=== PATIENT | female | born 1990 | race American Indian/Alaskan Native ===

== ENCOUNTER 2019-02-04 08:32 | Inpatient (IN) | payer MEDICAID ==
--- NOTE | 2019-02-04 08:46 | History and Physical Report ---
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 of genital herpes: yes Partner hx. of genital herpes: no Rash, Viral, or Febrile illness since last LMP? no Varicella/Chicken Pox Status: Previous Disease TB Risk: no Infection History Comments: HSV 2 Genetic History Congenital Heart Defect: Mom: no Dad: no Martha Disease: Mom: no Dad: no Thalassemia Mom: no Dad: no Neural Tube Defect Mom: no Dad: no Down's Syndrome Mom: no Dad: no Sam-Sachs Mom: no Dad: no Sickle Cell Disease/Trait Mom: no Dad: no Hemophilia Mom: no Dad: no Muscular Dystrophy Mom: no Dad: no Cystic Fibrosis Mom: no Dad: no [place] Chorea Mom: no Dad: no Mental Retardation Mom: no Dad: no Fragile X Mom: no Dad: no Other Genetic/Chromosomal Disorder Mom: no Dad: no Child w/other defect Mom: no Dad: no Enviromental Exposures Xray Exposure: no Medication, drug, or alcohol use since LMP: no Chemical/Other Exposure: no Exposure to Cat Liter: no Hx of Parvovirus (Fifth Disease): no Occupational Exposure to Children: none Active Medications (reviewed today): VALTREX 500 MG () 1 PO Daily. Current Allergies (reviewed today): No known allergies Past History - Obstetrical History Expected Date of Delivery: 02/06/19 Actual Gestation: 39 Week(s) 5 Day(s) : 2 Para: 1 Hx # Term Pregnancies: 1 Number of Pregnancies: 0 Spontaneous Abortions: 0 Induced : 0 Number of Living Children: 1 Medications and Allergies Allergies Allergy/AdvReac Type Severity Reaction Status Date / Time No Known Allergies Allergy Verified 02/04/19 08:42 Home Medications Medication Instructions Recorded Confirmed Last Taken Type Pediatric Multivitamin No.76 1 each PO 02/04/19 Unknown History [Flintstones Complete] Valacyclovir HCl [Valtrex] 1,000 mg PO 02/04/19 Unknown History - Physical Exam Breasts: Positive: deferred Cardiovascular: Regular rate, Normal S1, Normal S2 Lungs: Positive: Normal air movement Abdomen: Positive: normal appearance, soft, normal bowel sounds. Negative: distention, tenderness Genitourinary (Female): Positive: normal external genitalia Vulva: both: normal Vagina: Positive: normal moisture. Negative: discharge Cervix: Negative: lesion, discharge Uterus: Positive: normal size, normal contour Adnexa: both: normal Anus/Rectum: Positive: normal perianal skin, heme negative. Negative: rectal mass, hemorrhoids Extremities: Positive: normal Deep Tendon Reflex Grade: Normal +2 - Obstetrical FHR: category 1 Uterine Contraction Monitor Mode: External Cervical Dilatation: 1 Cervical Effacement Percentage: 50 station: -3 Uterine Contraction Pattern: Irregular Uterine Tone Measurement Phase: Resting Uterine Contraction Intensity: Mild Results Result Diagrams: 02/04/19 10:30 All other labs normal. GBS Negative HBsAg Screen Negative Negative *1 RPR Non Reactive Non Reactive *2 Rubella Antibodies, IgG 4.55 index Immune >0.99 *3 Non-immune <0.90 Equivocal 0.90 - 0.99 Immune >0.99 ABO Grouping B *4 Rh Factor Positive *5 Please note: Prior records for this patient's ABO / Rh type are not available for additional verification. Antibody Screen Negative Negative *6 WBC 8.1 x10E3/uL 3.4-10.8 *7 RBC 4.15 x10E6/uL 3.77-5.28 *8 Hemoglobin 12.4 g/dL 11.1-15.9 *9 Hematocrit 37.3 % 34.0-46.6 *10 MCV 90 fL 79-97 *11 MCH 29.9 pg 26.6-33.0 *12 MCHC 33.2 g/dL 31.5-35.7 *13 RDW 14.6 % 12.3-15.4 *14 Platelets 217 x10E3/uL 150-379 *15 Neutrophils 73 % Not Estab. *16 Lymphs 17 % Not Estab. *17 Monocytes 8 % Not Estab. *18 Eos 1 % Not Estab. *19 Basos 0 % Not Estab. *20 ! Immature Cells <No Reported Value> *21 Neutrophils (Absolute) 6.0 x10E3/uL 1.4-7.0 *22 Lymphs (Absolute) 1.4 x10E3/uL 0.7-3.1 *23 Monocytes(Absolute) 0.7 x10E3/uL 0.1-0.9 *24 Eos (Absolute) 0.1 x10E3/uL 0.0-0.4 *25 Baso (Absolute) 0.0 x10E3/uL 0.0-0.2 *26 ! Immature Granulocytes 1 % Not Estab. *27 ! Immature Grans (Abs) 0.0 x10E3/uL 0.0-0.1 *28 ! NRBC <No Reported Value> *29 Hematology Comments: <No Reported Value> *30 Tests: (2) Panel 601231 ([id number]) HIV Screen 4th Generation wRfx Non Reactive Non Reactive *31 Tests: (3) HCV Ab w/Rflx to Verification (458307) ! HCV Ab <0.1 s/co ratio 0.0-0.9 *32 Tests: (4) Comment: (842204) ! Comment: SPR[facility] *33 Non reactive HCV antibody screen is consistent with no HCV infection, unless recent infection is suspected or other evidence exists to indicate HCV infection. Tests: (5) Urine Culture, Routine (615899) Urine Culture, Routine Final report *34 Tests: (6) Result ([id number]) ! Result 1 No growth *35 Assessment and Plan 28yo @ 39 weeks for IOL as per AMFM recommendation due to GDM and IUGR GBS negative Orders in EMR
[2019-02-04] MEDS ORDERED: BRETHINE SUB-Q PRN (08:49)
[2019-02-04] MEDS ORDERED: XYLOCAINE 2% INFILTRATI NR (08:49)
[2019-02-04] MEDS ORDERED: SUBLIMAZE IV PRN (08:49)
[2019-02-04] MEDS ORDERED: PITOCin/NS 20 UNIT/1000ML DRIP 20 UNITS/1,000 ML BAG IV SCH (09:00)
[2019-02-04] MEDS ORDERED: PITOCin/NS 30 UNIT/500ML 30 UNITS/500 ML BAG IV SCH (09:00)
[2019-02-04 11:04] LABS: Hematocrit 38.3 % (30.3-42.9); Hemoglobin 13.2 gm/dl (10.1-14.3); Mean Corpuscular HGB Conc 35 % (30-34); Mean Corpuscular Volume 90 fl (79-97); Platelet Count 162 K/mm3 (140-440); Red Blood Count 4.27 M/mm3 (3.65-5.03); Red Cell Distribution Width 15.5 % (13.2-15.2)
--- NOTE | 2019-02-04 19:02 | Event Note ---
Date: 02/04/19 (MGSO4 off; transfer to ) pt is w/o complaint anxious to transfer to m/b so she can be with her NB. VSS BP stable Orders in EMR Dr Uribe aware
[2019-02-04] MEDS ORDERED: AMBIEN PO PRN (19:05)
--- NOTE | 2019-02-04 19:05 | Event Note ---
Date: 02/04/19 (pitocin off) Pt to be OOB for PM care and diet Pitocin off Will place cervidil @ 1999.
[2019-02-04] MEDS ORDERED: CERVIDIL VG ONE (20:00)
[2019-02-04] MEDS: LACTATED RINGERS 1,000 ML IV SCH ×2 (21:10→23:35)
[2019-02-04] MEDS ORDERED: MINERAL OIL PO PRN (22:00)
[2019-02-05] MEDS ORDERED: REGLAN ONE (00:08)
[2019-02-05] MEDS ORDERED: BICITRA ONE (00:08)
[2019-02-05] MEDS ORDERED: ANCEF/STERILE WATER 2 GM/20 ML 2 GM/20 ML SYRINGE IV ONE (00:09)
[2019-02-05] MEDS ORDERED: PEPCID IV ONE ×2 (00:10→04:16)
--- NOTE | 2019-02-05 00:23 | Progress Note ---
Assessment and Plan Called by RN just after cervidil was placed and pt was having deep decelerations Cervidil was pulled. Pt had low dose pitocin started and within 30min started having deep decels again SVE unchged per RN. Once I arrived cervix examined 1- 2,50, OOP bedside US done to confirm vertex. Discussed findings with pt and her mom that being remote from delivery there may be a need for section. Pt has been bolused will get epidural. Dr Uribe made aware of situation. C/S consent signed. 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 of genital herpes: yes Partner hx. of genital herpes: no Rash, Viral, or Febrile illness since last LMP? no Varicella/Chicken Pox Status: Previous Disease TB Risk: no Infection History Comments: HSV 2 Genetic History Congenital Heart Defect: Mom: no Dad: no Martha Disease: Mom: no Dad: no Thalassemia Mom: no Dad: no Neural Tube Defect Mom: no Dad: no Down's Syndrome Mom: no Dad: no Sam-Sachs Mom: no Dad: no Sickle Cell Disease/Trait Mom: no Dad: no Hemophilia Mom: no Dad: no Muscular Dystrophy Mom: no Dad: no Cystic Fibrosis Mom: no Dad: no [place] Chorea Mom: no Dad: no Mental Retardation Mom: no Dad: no Fragile X Mom: no Dad: no Other Genetic/Chromosomal Disorder Mom: no Dad: no Child w/other defect Mom: no Dad: no Enviromental Exposures Xray Exposure: no Medication, drug, or alcohol use since LMP: no Chemical/Other Exposure: no Exposure to Cat Liter: no Hx of Parvovirus (Fifth Disease): no Occupational Exposure to Children: none Active Medications (reviewed today): VALTREX 500 MG () 1 PO Daily. Current Allergies (reviewed today): No known allergies Patient reports: movement normal Objective - Vital Signs Vital Signs: Vital Signs - 12hr 02/04/19 02/04/19 02/04/19 12:42 13:42 14:05 Temperature 98.3 F Pulse Rate 77 64 Blood Pressure 102/57 104/64 O2 Sat by Pulse Oximetry 02/04/19 02/04/19 02/04/19 14:42 15:42 16:43 Temperature Pulse Rate 70 63 72 Blood Pressure 100/63 100/63 108/69 O2 Sat by Pulse Oximetry 02/04/19 02/04/19 02/04/19 17:41 18:05 18:43 Temperature 98.2 F Pulse Rate 81 86 Blood Pressure 110/68 107/67 O2 Sat by Pulse Oximetry 02/04/19 02/04/19 02/04/19 19:42 20:15 20:42 Temperature Pulse Rate 77 78 71 Blood Pressure 105/62 118/69 108/61 O2 Sat by Pulse Oximetry 02/04/19 02/04/19 02/04/19 21:23 21:28 21:33 Temperature Pulse Rate 66 65 65 Blood Pressure O2 Sat by Pulse 100 100 100 Oximetry 02/04/19 02/04/19 02/04/19 21:38 21:42 21:43 Temperature Pulse Rate 64 61 62 Blood Pressure 106/61 O2 Sat by Pulse 100 100 Oximetry 02/04/19 02/04/19 02/04/19 21:48 21:53 21:58 Temperature Pulse Rate 60 70 61 Blood Pressure O2 Sat by Pulse 100 100 100 Oximetry 02/04/19 02/04/19 02/04/19 22:03 22:08 22:13 Temperature Pulse Rate 63 59 L 63 Blood Pressure O2 Sat by Pulse 100 99 100 Oximetry 02/04/19 02/04/19 02/04/19 22:18 22:23 22:28 Temperature Pulse Rate 63 67 63 Blood Pressure O2 Sat by Pulse 100 100 100 Oximetry 02/04/19 02/04/19 02/04/19 22:33 22:38 22:42 Temperature Pulse Rate 75 76 65 Blood Pressure 101/53 O2 Sat by Pulse 100 100 Oximetry 02/04/19 02/04/19 02/04/19 22:43 22:48 22:53 Temperature Pulse Rate 66 66 72 Blood Pressure O2 Sat by Pulse 100 100 100 Oximetry 02/04/19 02/04/19 02/04/19 22:58 23:03 23:10 Temperature Pulse Rate 73 72 73 Blood Pressure O2 Sat by Pulse 100 100 100 Oximetry 02/04/19 02/04/19 02/04/19 23:15 23:20 23:25 Temperature Pulse Rate 75 69 61 Blood Pressure O2 Sat by Pulse 99 99 100 Oximetry 02/04/19 02/04/19 02/04/19 23:30 23:35 23:40 Temperature Pulse Rate 77 71 72 Blood Pressure O2 Sat by Pulse 100 100 100 Oximetry 02/04/19 02/04/19 02/04/19 23:42 23:45 23:50 Temperature Pulse Rate 62 66 61 Blood Pressure 114/77 O2 Sat by Pulse 100 100 Oximetry 02/04/19 02/05/19 02/05/19 23:55 00:00 00:05 Temperature Pulse Rate 84 85 76 Blood Pressure O2 Sat by Pulse 100 100 100 Oximetry 02/05/19 00:10 Temperature Pulse Rate 86 Blood Pressure O2 Sat by Pulse 97 Oximetry - Exam Breasts: deferred Cardiovascular: Regular rate Lungs: Normal air movement Abdomen: Present: normal appearance, soft. Absent: distention, tenderness Uterus: Present: normal FHR: auscultation normal, category 2 Uterine Contraction Monitor Mode: External Cervical Dilatation: 1.5 Cervical Effacement Percentage: 50 station: -3 Uterine Contraction Pattern: Irregular Uterine Tone Measurement Phase: Resting Uterine Contraction Intensity: Mild Extremities: normal Deep Tendon Reflex Grade: Normal +2 - Labs Labs: Abnormal Labs 02/04/19 10:30 MCHC 35 H RDW 15.5 H Laboratory Results - last 24 hr 02/04/19 02/04/19 02/04/19 10:30 10:30 10:30 WBC 6.6 RBC 4.27 Hgb 13.2 Hct 38.3 MCV 90 MCH 31 MCHC 35 H RDW 15.5 H Plt Count 162 RPR Nonreactive Blood Type B POSITIVE Antibody Screen Negative
[2019-02-05] MEDS ORDERED: NARCAN 2 MG/2 ML IV PRN (01:04)
--- NOTE | 2019-02-05 01:04 | Anesthesia Day of Surgery ---
Anesthesia Day of Surgery - Day of Surgery Patient Examined: Yes Patient H&P Reviewed: Yes Patient is NPO: Yes
--- NOTE | 2019-02-05 01:04 | Anesthesia Consultation ---
Anesthesia Consult and Med Hx Date of service: 02/05/19 - Airway Anesthetic Teeth Evaluation: Good ROM Head & Neck: Adequate Mental/Hyoid Distance: Adequate Mallampati Class: Class I Intubation Access Assessment: Good - Pulmonary Exam CTA: Yes - Cardiac Exam Cardiac Exam: RRR - Pre-Operative Health Status ASA Pre-Surgery Classification: ASA2 Proposed Anesthetic Plan: Epidural - Pulmonary Hx Asthma: No - Cardiovascular System Hx Hypertension: No - Central Nervous System Hx Seizures: No Hx Psychiatric Problems: No - Endocrine Hx Renal Disease: No Hx Hypothyroidism: No Hx Hyperthyroidism: No - Hematic Hx Anemia: No Hx Sickle Cell Disease: No
--- NOTE | 2019-02-05 01:23 | Progress Note ---
Assessment and Plan will continue close observation Will start pitocin @ 0200 Re-eval prn Subjective - Subjective Date of service: 02/05/19 (comfortable with epidural) Principal diagnosis: IOL @ 39 weeks GDM & IUGR Interval history: Past History : 2 Term Births: 1 Living Children: 1 Para: 1 Aborta: 0 # 1 Delivery date: 05/03/2011 Weeks Gestation: 40 Delivery type: Vaginal Anesthesia type: epidural Delivery location: [facility] Infant Sex: male weight: 7.25 Name: trung Comments: none Past Medical History: Reviewed history from 10/04/2010 and no changes required: 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 of genital herpes: yes Partner hx. of genital herpes: no Rash, Viral, or Febrile illness since last LMP? no Varicella/Chicken Pox Status: Previous Disease TB Risk: no Infection History Comments: HSV 2 Genetic History Congenital Heart Defect: Mom: no Dad: no Martha Disease: Mom: no Dad: no Thalassemia Mom: no Dad: no Neural Tube Defect Mom: no Dad: no Down's Syndrome Mom: no Dad: no Sam-Sachs Mom: no Dad: no Sickle Cell Disease/Trait Mom: no Dad: no Hemophilia Mom: no Dad: no Muscular Dystrophy Mom: no Dad: no Cystic Fibrosis Mom: no Dad: no [place] Chorea Mom: no Dad: no Mental Retardation Mom: no Dad: no Fragile X Mom: no Dad: no Other Genetic/Chromosomal Disorder Mom: no Dad: no Child w/other defect Mom: no Dad: no Enviromental Exposures Xray Exposure: no Medication, drug, or alcohol use since LMP: no Chemical/Other Exposure: no Exposure to Cat Liter: no Hx of Parvovirus (Fifth Disease): no Occupational Exposure to Children: none Active Medications (reviewed today): VALTREX 500 MG () 1 PO Daily. Current Allergies (reviewed today): No known allergies Patient reports: movement normal Objective - Vital Signs Vital Signs: Vital Signs - 12hr 02/04/19 02/04/19 02/04/19 13:42 14:05 14:42 Temperature 98.3 F Pulse Rate 64 70 Blood Pressure 104/64 100/63 O2 Sat by Pulse Oximetry 02/04/19 02/04/19 02/04/19 15:42 16:43 17:41 Temperature Pulse Rate 63 72 81 Blood Pressure 100/63 108/69 110/68 O2 Sat by Pulse Oximetry 02/04/19 02/04/19 02/04/19 18:05 18:43 19:42 Temperature 98.2 F Pulse Rate 86 77 Blood Pressure 107/67 105/62 O2 Sat by Pulse Oximetry 02/04/19 02/04/19 02/04/19 20:15 20:42 21:23 Temperature Pulse Rate 78 71 66 Blood Pressure 118/69 108/61 O2 Sat by Pulse 100 Oximetry 02/04/19 02/04/19 02/04/19 21:28 21:33 21:38 Temperature Pulse Rate 65 65 64 Blood Pressure O2 Sat by Pulse 100 100 100 Oximetry 02/04/19 02/04/19 02/04/19 21:42 21:43 21:48 Temperature Pulse Rate 61 62 60 Blood Pressure 106/61 O2 Sat by Pulse 100 100 Oximetry 02/04/19 02/04/19 02/04/19 21:53 21:58 22:03 Temperature Pulse Rate 70 61 63 Blood Pressure O2 Sat by Pulse 100 100 100 Oximetry 02/04/19 02/04/19 02/04/19 22:08 22:13 22:18 Temperature Pulse Rate 59 L 63 63 Blood Pressure O2 Sat by Pulse 99 100 100 Oximetry 02/04/19 02/04/19 02/04/19 22:23 22:28 22:33 Temperature Pulse Rate 67 63 75 Blood Pressure O2 Sat by Pulse 100 100 100 Oximetry 02/04/19 02/04/19 02/04/19 22:38 22:42 22:43 Temperature Pulse Rate 76 65 66 Blood Pressure 101/53 O2 Sat by Pulse 100 100 Oximetry 02/04/19 02/04/19 02/04/19 22:48 22:53 22:58 Temperature Pulse Rate 66 72 73 Blood Pressure O2 Sat by Pulse 100 100 100 Oximetry 02/04/19 02/04/19 02/04/19 23:03 23:10 23:15 Temperature Pulse Rate 72 73 75 Blood Pressure O2 Sat by Pulse 100 100 99 Oximetry 02/04/19 02/04/19 02/04/19 23:20 23:25 23:30 Temperature Pulse Rate 69 61 77 Blood Pressure O2 Sat by Pulse 99 100 100 Oximetry 02/04/19 02/04/19 02/04/19 23:35 23:40 23:42 Temperature Pulse Rate 71 72 62 Blood Pressure 114/77 O2 Sat by Pulse 100 100 Oximetry 02/04/19 02/04/19 02/04/19 23:45 23:50 23:55 Temperature Pulse Rate 66 61 84 Blood Pressure O2 Sat by Pulse 100 100 100 Oximetry 02/05/19 02/05/19 02/05/19 00:00 00:05 00:10 Temperature Pulse Rate 85 76 86 Blood Pressure O2 Sat by Pulse 100 100 97 Oximetry 02/05/19 02/05/19 02/05/19 00:14 00:15 00:20 Temperature Pulse Rate 107 H 114 H 83 Blood Pressure O2 Sat by Pulse 91 97 100 Oximetry 02/05/19 02/05/19 02/05/19 00:25 00:28 00:30 Temperature Pulse Rate 105 H 96 H 95 H Blood Pressure 129/87 132/85 O2 Sat by Pulse 100 99 Oximetry 02/05/19 02/05/19 02/05/19 00:31 00:34 00:35 Temperature Pulse Rate 93 H 101 H 96 H Blood Pressure 128/83 131/85 O2 Sat by Pulse 100 Oximetry 02/05/19 02/05/19 02/05/19 00:37 00:40 00:43 Temperature Pulse Rate 115 H 107 H 96 H Blood Pressure 134/86 132/84 126/80 O2 Sat by Pulse 99 Oximetry 02/05/19 02/05/19 02/05/19 00:45 00:46 00:49 Temperature Pulse Rate 91 H 77 100 H Blood Pressure 128/83 132/79 O2 Sat by Pulse 100 Oximetry 02/05/19 02/05/19 02/05/19 00:50 00:52 00:55 Temperature Pulse Rate 93 H 90 82 Blood Pressure 126/80 121/74 O2 Sat by Pulse 100 Oximetry 02/05/19 02/05/1919 00:56 00:58 01:01 Temperature Pulse Rate 77 82 88 Blood Pressure 122/75 111/62 O2 Sat by Pulse 100 Oximetry 02/05/19 02/05/19 02/05/19 01:02 01:04 01:07 Temperature Pulse Rate 102 H 83 90 Blood Pressure 112/63 113/69 O2 Sat by Pulse 100 100 Oximetry 02/05/19 02/05/19 02/05/19 01:10 01:12 01:13 Temperature Pulse Rate 96 H 74 83 Blood Pressure 106/60 111/66 O2 Sat by Pulse 100 Oximetry 02/05/19 02/05/19 01:16 01:17 Temperature Pulse Rate 70 74 Blood Pressure 109/65 O2 Sat by Pulse 100 Oximetry - Exam Breasts: deferred Cardiovascular: Regular rate Lungs: Normal air movement Abdomen: Present: normal appearance, soft. Absent: distention, tenderness Uterus: Present: normal FHR: auscultation normal, category 1 Uterine Contraction Monitor Mode: Internal Cervical Dilatation: 3 (ROM; minimal fluid) Cervical Effacement Percentage: 50 (ISE/IUPC placed) station: -2 Uterine Contraction Pattern: Irregular Uterine Tone Measurement Phase: Resting Uterine Contraction Intensity: Mild Extremities: normal Deep Tendon Reflex Grade: Normal +2 - Labs Labs: Abnormal Labs 02/04/19 10:30 MCHC 35 H RDW 15.5 H Laboratory Results - last 24 hr 02/04/19 02/04/19 02/04/19 10:30 10:30 10:30 WBC 6.6 RBC 4.27 Hgb 13.2 Hct 38.3 MCV 90 MCH 31 MCHC 35 H RDW 15.5 H Plt Count 162 RPR Nonreactive Blood Type B POSITIVE Antibody Screen Negative
[2019-02-05] MEDS ORDERED: fentaNYL-BUPIV 2 MCG/ML-0.125% 200 MCG/100 ML BAG EPIDURAL SCH (02:00)
[2019-02-05] MEDS ORDERED: PITOCin/NS 30 UNIT/500ML 30 UNITS/500 ML BAG IV SCH (02:11)
--- NOTE | 2019-02-05 03:13 | Progress Note ---
Assessment and Plan Pit not tolerated Turned off SVE no chg Overall Category 1 strip with occasional variables Good variability. Ctx now q10-12 min Will continue to observe. Epidural pump started. 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 of genital herpes: yes Partner hx. of genital herpes: no Rash, Viral, or Febrile illness since last LMP? no Varicella/Chicken Pox Status: Previous Disease TB Risk: no Infection History Comments: HSV 2 Genetic History Congenital Heart Defect: Mom: no Dad: no Martha Disease: Mom: no Dad: no Thalassemia Mom: no Dad: no Neural Tube Defect Mom: no Dad: no Down's Syndrome Mom: no Dad: no Sam-Sachs Mom: no Dad: no Sickle Cell Disease/Trait Mom: no Dad: no Hemophilia Mom: no Dad: no Muscular Dystrophy Mom: no Dad: no Cystic Fibrosis Mom: no Dad: no Bullock Chorea Mom: no Dad: no Mental Retardation Mom: no Dad: no Fragile X Mom: no Dad: no Other Genetic/Chromosomal Disorder Mom: no Dad: no Child w/other defect Mom: no Dad: no Enviromental Exposures Xray Exposure: no Medication, drug, or alcohol use since LMP: no Chemical/Other Exposure: no Exposure to Cat Liter: no Hx of Parvovirus (Fifth Disease): no Occupational Exposure to Children: none Active Medications (reviewed today): VALTREX 500 MG () 1 PO Daily. Current Allergies (reviewed today): No known allergies Patient reports: movement normal Objective - Vital Signs Vital Signs: Vital Signs - 12hr 02/04/19 02/04/19 02/04/19 15:42 16:43 17:41 Temperature Pulse Rate 63 72 81 Blood Pressure 100/63 108/69 110/68 O2 Sat by Pulse Oximetry 02/04/19 02/04/19 02/04/19 18:05 18:43 19:42 Temperature 98.2 F Pulse Rate 86 77 Blood Pressure 107/67 105/62 O2 Sat by Pulse Oximetry 02/04/19 02/04/19 02/04/19 20:15 20:42 21:23 Temperature Pulse Rate 78 71 66 Blood Pressure 118/69 108/61 O2 Sat by Pulse 100 Oximetry 02/04/19 02/04/19 02/04/19 21:28 21:33 21:38 Temperature Pulse Rate 65 65 64 Blood Pressure O2 Sat by Pulse 100 100 100 Oximetry 02/04/19 02/04/19 02/04/19 21:42 21:43 21:48 Temperature Pulse Rate 61 62 60 Blood Pressure 106/61 O2 Sat by Pulse 100 100 Oximetry 02/04/19 02/04/19 02/04/19 21:53 21:58 22:03 Temperature Pulse Rate 70 61 63 Blood Pressure O2 Sat by Pulse 100 100 100 Oximetry 02/04/19 02/04/19 02/04/19 22:08 22:13 22:18 Temperature Pulse Rate 59 L 63 63 Blood Pressure O2 Sat by Pulse 99 100 100 Oximetry 02/04/19 02/04/19 02/04/19 22:23 22:28 22:33 Temperature Pulse Rate 67 63 75 Blood Pressure O2 Sat by Pulse 100 100 100 Oximetry 02/04/19 02/04/19 02/04/19 22:38 22:42 22:43 Temperature Pulse Rate 76 65 66 Blood Pressure 101/53 O2 Sat by Pulse 100 100 Oximetry 02/04/19 02/04/19 02/04/19 22:48 22:53 22:58 Temperature Pulse Rate 66 72 73 Blood Pressure O2 Sat by Pulse 100 100 100 Oximetry 02/04/19 02/04/19 02/04/19 23:03 23:10 23:15 Temperature Pulse Rate 72 73 75 Blood Pressure O2 Sat by Pulse 100 100 99 Oximetry 02/04/19 02/04/19 02/04/19 23:20 23:25 23:30 Temperature Pulse Rate 69 61 77 Blood Pressure O2 Sat by Pulse 99 100 100 Oximetry 02/04/19 02/04/19 02/04/19 23:35 23:40 23:42 Temperature Pulse Rate 71 72 62 Blood Pressure 114/77 O2 Sat by Pulse 100 100 Oximetry 02/04/19 02/04/19 02/04/19 23:45 23:50 23:55 Temperature Pulse Rate 66 61 84 Blood Pressure O2 Sat by Pulse 100 100 100 Oximetry 02/05/19 02/05/19 02/05/19 00:00 00:05 00:10 Temperature Pulse Rate 85 76 86 Blood Pressure O2 Sat by Pulse 100 100 97 Oximetry 02/05/19 02/05/19 02/05/19 00:14 00:15 00:20 Temperature Pulse Rate 107 H 114 H 83 Blood Pressure O2 Sat by Pulse 91 97 100 Oximetry 02/05/19 02/05/19 02/05/19 00:25 00:28 00:30 Temperature Pulse Rate 105 H 96 H 95 H Blood Pressure 129/87 132/85 O2 Sat by Pulse 100 99 Oximetry 02/05/19 02/05/19 02/05/19 00:31 00:34 00:35 Temperature Pulse Rate 93 H 101 H 96 H Blood Pressure 128/83 131/85 O2 Sat by Pulse 100 Oximetry 02/05/19 02/05/19 02/05/19 00:37 00:40 00:43 Temperature Pulse Rate 115 H 107 H 96 H Blood Pressure 134/86 132/84 126/80 O2 Sat by Pulse 99 Oximetry 02/05/19 02/05/19 02/05/19 00:45 00:46 00:49 Temperature Pulse Rate 91 H 77 100 H Blood Pressure 128/83 132/79 O2 Sat by Pulse 100 Oximetry 02/05/19 02/05/19 02/05/19 00:50 00:52 00:55 Temperature Pulse Rate 93 H 90 82 Blood Pressure 126/80 121/74 O2 Sat by Pulse 100 Oximetry 02/05/19 02/05/19 02/05/19 00:56 00:58 01:01 Temperature Pulse Rate 77 82 88 Blood Pressure 122/75 111/62 O2 Sat by Pulse 100 Oximetry 02/05/19 02/05/19 02/05/19 01:02 01:04 01:07 Temperature Pulse Rate 102 H 83 90 Blood Pressure 112/63 113/69 O2 Sat by Pulse 100 100 Oximetry 02/05/19 02/05/19 02/05/19 01:10 01:12 01:13 Temperature Pulse Rate 96 H 74 83 Blood Pressure 106/60 111/66 O2 Sat by Pulse 100 Oximetry 02/05/19 02/05/19 02/05/19 01:16 01:17 01:19 Temperature Pulse Rate 70 74 79 Blood Pressure 109/65 113/65 O2 Sat by Pulse 100 Oximetry 02/05/19 02/05/19 02/05/19 01:22 01:25 01:27 Temperature Pulse Rate 75 76 69 Blood Pressure 104/66 110/68 O2 Sat by Pulse 100 100 Oximetry 02/05/19 02/05/19 02/05/19 01:28 01:31 01:32 Temperature Pulse Rate 81 69 79 Blood Pressure 109/68 99/65 O2 Sat by Pulse 100 Oximetry 02/05/19 02/05/19 02/05/19 01:34 01:37 01:40 Temperature Pulse Rate 72 79 72 Blood Pressure 105/62 97/62 92/59 O2 Sat by Pulse 100 Oximetry 02/05/19 02/05/19 02/05/19 01:42 01:43 01:46 Temperature Pulse Rate 76 73 69 Blood Pressure 98/61 99/59 O2 Sat by Pulse 100 Oximetry 02/05/19 02/05/19 02/05/19 01:47 01:49 01:52 Temperature Pulse Rate 76 75 72 Blood Pressure 104/57 97/58 O2 Sat by Pulse 100 98 Oximetry 02/05/19 02/05/19 02/05/19 01:55 01:57 01:58 Temperature Pulse Rate 84 72 77 Blood Pressure 92/57 97/59 O2 Sat by Pulse 99 Oximetry 02/05/19 02/05/19 02/05/19 02:01 02:02 02:04 Temperature Pulse Rate 69 75 68 Blood Pressure 98/58 97/55 O2 Sat by Pulse 99 Oximetry 02/05/19 02/05/19 02/05/19 02:07 02:10 02:12 Temperature Pulse Rate 75 82 72 Blood Pressure 100/58 99/59 O2 Sat by Pulse 99 100 Oximetry 02/05/19 02/05/19 02/05/19 02:17 02:22 02:26 Temperature Pulse Rate 75 70 74 Blood Pressure 102/57 O2 Sat by Pulse 100 99 Oximetry 02/05/19 02/05/19 02/05/19 02:27 02:32 02:37 Temperature Pulse Rate 77 74 75 Blood Pressure O2 Sat by Pulse 100 98 99 Oximetry 02/05/19 02/05/19 02/05/19 02:41 02:42 02:47 Temperature Pulse Rate 61 66 71 Blood Pressure 110/64 O2 Sat by Pulse 99 99 Oximetry 02/05/19 02/05/19 02/05/19 02:52 02:56 02:57 Temperature Pulse Rate 67 69 69 Blood Pressure 113/70 O2 Sat by Pulse 99 98 Oximetry 02/05/19 02/05/19 03:02 03:07 Temperature Pulse Rate 73 77 Blood Pressure O2 Sat by Pulse 100 98 Oximetry - Exam Breasts: deferred Cardiovascular: Regular rate Lungs: Normal air movement Abdomen: Present: normal appearance, soft. Absent: distention, tenderness Uterus: Present: normal FHR: auscultation normal, category 2 (variable decels ) Uterine Contraction Monitor Mode: Internal Cervical Dilatation: 1.5 Cervical Effacement Percentage: 50 station: -2 Uterine Contraction Pattern: Irregular Uterine Tone Measurement Phase: Resting Uterine Contraction Intensity: Mild Extremities: normal Deep Tendon Reflex Grade: Normal +2 - Labs Labs: Abnormal Labs 02/04/19 10:30 MCHC 35 H RDW 15.5 H Laboratory Results - last 24 hr 02/04/19 02/04/19 02/04/19 10:30 10:30 10:30 WBC 6.6 RBC 4.27 Hgb 13.2 Hct 38.3 MCV 90 MCH 31 MCHC 35 H RDW 15.5 H Plt Count 162 RPR Nonreactive Blood Type B POSITIVE Antibody Screen Negative
[2019-02-05] MEDS ORDERED: BICITRA PO ONE (04:16)
[2019-02-05] MEDS ORDERED: REGLAN IV ONE (04:16)
[2019-02-05] MEDS ORDERED: PITOCin/NS 20 UNIT/1000ML DRIP 20 UNITS/1,000 ML BAG IV SCH ×2 (05:00→09:00)
[2019-02-05] MEDS ORDERED: LACTATED RINGERS 1,000 ML IV SCH (05:00)
[2019-02-05] MEDS ORDERED: ANCEF/STERILE WATER 2 GM/20 ML 2 GM/20 ML SYRINGE IV NR (05:00)
--- NOTE | 2019-02-05 05:47 | Event Note ---
Date: 02/05/19 (pt called c/o pain) Epidural redose given Exam unchanged. Bloody show Moderate amt of clear fluid noted. Will re-eval when comfortable
[2019-02-05] MEDS ORDERED: MARCAINE 0.25% INFILTRATI ONE (05:48)
--- NOTE | 2019-02-05 06:01 | Progress Note ---
Assessment and Plan Continue w/o induction agent Monitor for progress. 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 Infection History Hx of STD: none HIV Risk Eval: low risk Hepatitis B Risk Eval: low risk Personal hx. of genital herpes: yes Partner hx. of genital herpes: no Rash, Viral, or Febrile illness since last LMP? no Varicella/Chicken Pox Status: Previous Disease TB Risk: no Infection History Comments: HSV 2 Genetic History Congenital Heart Defect: Mom: no Dad: no Martha Disease: Mom: no Dad: no Thalassemia Mom: no Dad: no Neural Tube Defect Mom: no Dad: no Down's Syndrome Mom: no Dad: no Sam-Sachs Mom: no Dad: no Sickle Cell Disease/Trait Mom: no Dad: no Hemophilia Mom: no Dad: no Muscular Dystrophy Mom: no Dad: no Cystic Fibrosis Mom: no Dad: no You Chorea Mom: no Dad: no Mental Retardation Mom: no Dad: no Fragile X Mom: no Dad: no Other Genetic/Chromosomal Disorder Mom: no Dad: no Child w/other defect Mom: no Dad: no Enviromental Exposures Xray Exposure: no Medication, drug, or alcohol use since LMP: no Chemical/Other Exposure: no Exposure to Cat Liter: no Hx of Parvovirus (Fifth Disease): no Occupational Exposure to Children: none Active Medications (reviewed today): VALTREX 500 MG () 1 PO Daily. Current Allergies (reviewed today): No known allergies Patient reports: movement normal Objective - Vital Signs Vital Signs: Vital Signs - 12hr 02/04/19 02/04/19 02/04/19 18:05 18:43 19:42 Temperature 98.2 F Pulse Rate 86 77 Blood Pressure 107/67 105/62 O2 Sat by Pulse Oximetry 02/04/19 02/04/19 02/04/19 20:15 20:42 21:23 Temperature Pulse Rate 78 71 66 Blood Pressure 118/69 108/61 O2 Sat by Pulse 100 Oximetry 02/04/19 02/04/19 02/04/19 21:28 21:33 21:38 Temperature Pulse Rate 65 65 64 Blood Pressure O2 Sat by Pulse 100 100 100 Oximetry 02/04/19 02/04/19 02/04/19 21:42 21:43 21:48 Temperature Pulse Rate 61 62 60 Blood Pressure 106/61 O2 Sat by Pulse 100 100 Oximetry 02/04/19 02/04/19 02/04/19 21:53 21:58 22:03 Temperature Pulse Rate 70 61 63 Blood Pressure O2 Sat by Pulse 100 100 100 Oximetry 02/04/19 02/04/19 02/04/19 22:08 22:13 22:18 Temperature Pulse Rate 59 L 63 63 Blood Pressure O2 Sat by Pulse 99 100 100 Oximetry 02/04/19 02/04/19 02/04/19 22:23 22:28 22:33 Temperature Pulse Rate 67 63 75 Blood Pressure O2 Sat by Pulse 100 100 100 Oximetry 02/04/19 02/04/19 02/04/19 22:38 22:42 22:43 Temperature Pulse Rate 76 65 66 Blood Pressure 101/53 O2 Sat by Pulse 100 100 Oximetry 02/04/19 02/04/19 02/04/19 22:48 22:53 22:58 Temperature Pulse Rate 66 72 73 Blood Pressure O2 Sat by Pulse 100 100 100 Oximetry 02/04/19 02/04/19 02/04/19 23:03 23:10 23:15 Temperature Pulse Rate 72 73 75 Blood Pressure O2 Sat by Pulse 100 100 99 Oximetry 02/04/19 02/04/19 02/04/19 23:20 23:25 23:30 Temperature Pulse Rate 69 61 77 Blood Pressure O2 Sat by Pulse 99 100 100 Oximetry 02/04/19 02/04/19 02/04/19 23:35 23:40 23:42 Temperature Pulse Rate 71 72 62 Blood Pressure 114/77 O2 Sat by Pulse 100 100 Oximetry 02/04/19 02/04/19 02/04/19 23:45 23:50 23:55 Temperature Pulse Rate 66 61 84 Blood Pressure O2 Sat by Pulse 100 100 100 Oximetry 02/05/19 02/05/19 02/05/19 00:00 00:05 00:10 Temperature Pulse Rate 85 76 86 Blood Pressure O2 Sat by Pulse 100 100 97 Oximetry 02/05/19 02/05/19 02/05/19 00:14 00:15 00:20 Temperature Pulse Rate 107 H 114 H 83 Blood Pressure O2 Sat by Pulse 91 97 100 Oximetry 02/05/19 02/05/19 02/05/19 00:25 00:28 00:30 Temperature Pulse Rate 105 H 96 H 95 H Blood Pressure 129/87 132/85 O2 Sat by Pulse 100 99 Oximetry 02/05/19 02/05/19 02/05/19 00:31 00:34 00:35 Temperature Pulse Rate 93 H 101 H 96 H Blood Pressure 128/83 131/85 O2 Sat by Pulse 100 Oximetry 02/05/19 02/05/19 02/05/19 00:37 00:40 00:43 Temperature Pulse Rate 115 H 107 H 96 H Blood Pressure 134/86 132/84 126/80 O2 Sat by Pulse 99 Oximetry 02/05/19 02/05/19 02/05/19 00:45 00:46 00:49 Temperature Pulse Rate 91 H 77 100 H Blood Pressure 128/83 132/79 O2 Sat by Pulse 100 Oximetry 02/05/19 02/05/19 02/05/19 00:50 00:52 00:55 Temperature Pulse Rate 93 H 90 82 Blood Pressure 126/80 121/74 O2 Sat by Pulse 100 Oximetry 02/05/19 02/05/19 02/05/19 00:56 00:58 01:01 Temperature Pulse Rate 77 82 88 Blood Pressure 122/75 111/62 O2 Sat by Pulse 100 Oximetry 02/05/19 02/05/19 02/05/19 01:02 01:04 01:07 Temperature Pulse Rate 102 H 83 90 Blood Pressure 112/63 113/69 O2 Sat by Pulse 100 100 Oximetry 02/05/19 02/05/19 02/05/19 01:10 01:12 01:13 Temperature Pulse Rate 96 H 74 83 Blood Pressure 106/60 111/66 O2 Sat by Pulse 100 Oximetry 02/05/19 02/05/19 02/05/19 01:16 01:17 01:19 Temperature Pulse Rate 70 74 79 Blood Pressure 109/65 113/65 O2 Sat by Pulse 100 Oximetry 02/05/19 02/05/19 02/05/19 01:22 01:25 01:27 Temperature Pulse Rate 75 76 69 Blood Pressure 104/66 110/68 O2 Sat by Pulse 100 100 Oximetry 02/05/19 02/05/19 02/05/19 01:28 01:31 01:32 Temperature Pulse Rate 81 69 79 Blood Pressure 109/68 99/65 O2 Sat by Pulse 100 Oximetry 02/05/19 02/05/19 02/05/19 01:34 01:37 01:40 Temperature Pulse Rate 72 79 72 Blood Pressure 105/62 97/62 92/59 O2 Sat by Pulse 100 Oximetry 02/05/19 02/05/19 02/05/19 01:42 01:43 01:46 Temperature Pulse Rate 76 73 69 Blood Pressure 98/61 99/59 O2 Sat by Pulse 100 Oximetry 02/05/19 02/05/19 02/05/19 01:47 01:49 01:52 Temperature Pulse Rate 76 75 72 Blood Pressure 104/57 97/58 O2 Sat by Pulse 100 98 Oximetry 02/05/19 02/05/19 02/05/19 01:55 01:57 01:58 Temperature Pulse Rate 84 72 77 Blood Pressure 92/57 97/59 O2 Sat by Pulse 99 Oximetry 02/05/19 02/05/19 02/05/19 02:01 02:02 02:04 Temperature Pulse Rate 69 75 68 Blood Pressure 98/58 97/55 O2 Sat by Pulse 99 Oximetry 02/05/19 02/05/19 02/05/19 02:07 02:10 02:12 Temperature Pulse Rate 75 82 72 Blood Pressure 100/58 99/59 O2 Sat by Pulse 99 100 Oximetry 02/05/19 02/05/19 02/05/19 02:17 02:22 02:26 Temperature Pulse Rate 75 70 74 Blood Pressure 102/57 O2 Sat by Pulse 100 99 Oximetry 02/05/19 02/05/19 02/05/19 02:27 02:32 02:37 Temperature Pulse Rate 77 74 75 Blood Pressure O2 Sat by Pulse 100 98 99 Oximetry 02/05/19 02/05/19 02/05/19 02:41 02:42 02:47 Temperature Pulse Rate 61 66 71 Blood Pressure 110/64 O2 Sat by Pulse 99 99 Oximetry 02/05/19 02/05/19 02/05/19 02:52 02:56 02:57 Temperature Pulse Rate 67 69 69 Blood Pressure 113/70 O2 Sat by Pulse 99 98 Oximetry 02/05/19 02/05/19 02/05/19 03:02 03:07 03:11 Temperature Pulse Rate 73 77 68 Blood Pressure 107/68 O2 Sat by Pulse 100 98 Oximetry 02/05/19 02/05/19 02/05/19 03:12 03:17 03:22 Temperature Pulse Rate 68 69 64 Blood Pressure O2 Sat by Pulse 99 98 99 Oximetry 02/05/19 02/05/19 02/05/19 03:25 03:27 03:32 Temperature Pulse Rate 68 75 68 Blood Pressure 101/64 O2 Sat by Pulse 99 99 Oximetry 02/05/19 02/05/19 02/05/19 03:37 03:41 03:42 Temperature Pulse Rate 90 62 65 Blood Pressure 101/61 O2 Sat by Pulse 97 99 Oximetry 02/05/19 02/05/19 02/05/19 03:47 03:52 03:56 Temperature Pulse Rate 63 75 68 Blood Pressure 110/68 O2 Sat by Pulse 99 98 Oximetry 02/05/19 02/05/19 02/05/19 03:57 04:02 04:07 Temperature Pulse Rate 78 71 64 Blood Pressure O2 Sat by Pulse 99 99 99 Oximetry 02/05/19 02/05/19 02/05/19 04:10 04:12 04:17 Temperature Pulse Rate 64 65 61 Blood Pressure 92/57 O2 Sat by Pulse 99 99 Oximetry 02/05/19 02/05/19 02/05/19 04:22 04:26 04:27 Temperature Pulse Rate 69 62 63 Blood Pressure 95/57 O2 Sat by Pulse 99 99 Oximetry 02/05/19 02/05/19 02/05/19 04:32 04:37 04:40 Temperature Pulse Rate 70 65 80 Blood Pressure 93/61 O2 Sat by Pulse 99 99 Oximetry 07/11/2102/05/19 02/05/19 04:42 04:47 04:52 Temperature Pulse Rate 71 75 79 Blood Pressure O2 Sat by Pulse 99 99 99 Oximetry 02/05/19 02/05/19 02/05/19 04:57 05:02 05:07 Temperature Pulse Rate 87 64 67 Blood Pressure O2 Sat by Pulse 99 99 98 Oximetry 02/05/19 02/05/19 02/05/19 05:11 05:12 05:17 Temperature Pulse Rate 68 67 71 Blood Pressure 102/73 O2 Sat by Pulse 99 98 Oximetry 02/05/19 02/05/19 02/05/19 05:22 05:26 05:27 Temperature Pulse Rate 62 63 66 Blood Pressure 98/55 O2 Sat by Pulse 99 98 Oximetry 02/05/19 02/05/19 02/05/19 05:32 05:37 05:41 Temperature Pulse Rate 70 62 75 Blood Pressure 118/67 O2 Sat by Pulse 99 99 Oximetry 02/05/19 02/05/19 02/05/19 05:42 05:47 05:52 Temperature Pulse Rate 74 93 H 83 Blood Pressure O2 Sat by Pulse 99 100 100 Oximetry 02/05/19 02/05/19 05:55 05:57 Temperature Pulse Rate 82 79 Blood Pressure 116/56 O2 Sat by Pulse 99 Oximetry - Exam Cervical Dilatation: 5 (IUPC replaced) Cervical Effacement Percentage: 60 station: -1 Uterine Contraction Pattern: Irregular Uterine Tone Measurement Phase: Resting Uterine Contraction Intensity: Mild Extremities: normal Deep Tendon Reflex Grade: Normal +2 - Labs Labs: Abnormal Labs 02/04/19 10:30 MCHC 35 H RDW 15.5 H Laboratory Results - last 24 hr 02/04/19 02/04/19 02/04/19 10:30 10:30 10:30 WBC 6.6 RBC 4.27 Hgb 13.2 Hct 38.3 MCV 90 MCH 31 MCHC 35 H RDW 15.5 H Plt Count 162 RPR Nonreactive Blood Type B POSITIVE Antibody Screen Negative
--- NOTE | 2019-02-05 08:32 | Event Note ---
Date: 02/05/19 Pt examined and cx is unchanged. She conts to have cat II tracing without regular contractions. I d/w that don't feel the baby will tolerate augmentation agent ie pitocin as she did not previously. She has remained unchanged for the last 2 hours. I have discussed delivery via c/s. Pt agrees. Consent signed and on the chart. All questions were addressed and answered.
[2019-02-05] MEDS ORDERED: NACL 0.9% IR ONE (08:44)
[2019-02-05] MEDS ORDERED: WATER FOR IRRIG STERILE IR ONE (08:44)
[2019-02-05] MEDS ORDERED: XYLOCAINE MPF 2% ONE (09:08)
[2019-02-05] MEDS ORDERED: LACTATED RINGERS 1,000 ML ONE (09:08)
--- NOTE | 2019-02-05 09:27 | Operative Report ---
Operative Report Operative Report: Date of procedure: 02/05/2019 Pre-operative diagnosis: 39 weeks and 6 days Gestational diabetes Intrauterine growth restriction Failure to progress Nonreassuring tracing Post-operative diagnosis: Same plus nuchal cord 2 Procedure name(s): Primary low transverse section via Pfannenstiel skin incision Surgeon: Dr. Leonard [employer] Clerk: JULISSA Anesthesia: Epidural EBL: 500 mL Urine output: 400 mL of clear urine out in the catheter bag during the procedure. There was some blood-tinged urine that was noted in the catheter tubing. Fluids: 1 L Findings: Liveborn male infant weight 5 lbs. 10 oz. Apgars of 8 and 9 at one and 5 minutes Grossly normal fallopian tubes and ovaries bilaterally Scalpel electrode was still attached to head at time of delivery Nuchal cord 2 easily reduced. Cord was also noted to be wrapped around the 's foot Indications: Patient may do for induction of labor. Patient was given Cervidil and was not able to tolerate the labor due to repetitive deep decelerations. Cervidil was removed. Patient was started on Pitocin. Patient continued to donahue ve deep decelerations that were repetitive on the Pitocin. Patient continued to have decelerations with Pitocin being DC. Patient did not have any progression of labor. Decision was made at this time to proceed with A section for intolerance to labor remote from delivery. Procedure: Patient was taking to the operating room. Patient was then prepped and draped in sterile fashion after anesthesia was found to be adequate. A low transverse skin incision was made with the scalpel and carried down to the underlying layer of fascia with the Bovie. The fascia was then incised in the midline and this incision was extended bilaterally with the Bovie. The superior aspect of the fascia was grasped with Hayley clamps tented upward and dissected off of the anterior rectus muscles with the scalpel. In similar fashion the inferior aspect of the fascia was grasped with Hayley clamps tented upward and dissected off of the anterior rectus muscles. The rectus muscles were then bl untly divided in the midline. The peritoneum was identified and entered into sharply. The Juni retractor was placed. The bladder blade was placed. The bladder flap was created using the Metzenbaum scissors. The bladder blade was replaced. A lower transverse uterine incision was made with the scalpel and extended bilaterally with the bandage scissors. Entry into the uterus yielded clear amniotic fluid. The 's head was then delivered atraumatically. The anterior shoulder and rest of delivered without difficulty. The umbilical cord was clamped x2. The cord was cut. The infant was then placed in sterile bassinet. The placenta was manually extracted in its entirety. The uterus was exteriorized and cleared of all clots and debris. The uterine incision was closed using 0 Vicryl in a running locking fashion. A second imbricating layer of the same suture was then created. The posterior cul-de-sac was copiously irrigated. The uterus was returned to the abdomen. The gutters were also irrigated. The anterior rectus muscles were reapproximated using 3-0 Vicryl. The anterior rectus fascia was reapproximated using 0 Vicryl in a running fashion. The subcuticular fat was reapproximated using 2-0 Vicryl in a running fashion. The skin was reapproximated with 4-0 Monocryl in a subcuticular stitch. The patient tolerated the procedure well. Sponge lap and needle counts were all correct x3. Patient was taken to the recovery room awake and in stable condition.
[2019-02-05] MEDS ORDERED: LANSINOH TP PRN (09:28)
[2019-02-05] MEDS ORDERED: TUCKS PAD TP PRN (09:28)
--- NOTE | 2019-02-05 09:42 | Post Anesthesia Evaluation ---
- Post Anesthesia Evaluation Patient Participated: Yes Airway Patent: Yes Stable Respiratory Function: Yes Nausea/Vomiting: No Temp > 96.8F: Yes Pain Manageable: Yes Adequeate Hydration: Yes Anesthesia Complications: No Block Receding Appropriately: Yes
[2019-02-05] MEDS ORDERED: DEXMEDETOMIDINE IV ONE (09:54)
[2019-02-05] MEDS ORDERED: ZOFRAN IV PRN ×2 (10:00)
[2019-02-05] MEDS ORDERED: PHENERGAN PR PRN (10:00)
[2019-02-05] MEDS ORDERED: NARCAN 0.4 MG/1 ML IV PRN ×2 (10:00)
[2019-02-05] MEDS ORDERED: PHENERGAN PO PRN (10:00)
[2019-02-05] MEDS ORDERED: D5LR 1,000 ML IV SCH (10:00)
[2019-02-05] MEDS ORDERED: TYLENOL PO PRN (10:00)
[2019-02-05] MEDS ORDERED: NUBAIN IV PRN (10:00)
[2019-02-05] MEDS ORDERED: SODIUM CHLORIDE FLUSH SYRINGE 10 ML IV NR ×2 (10:00)
--- NOTE | 2019-02-05 10:39 | Event Note ---
Date: 02/05/19 Pt currently has clear urine in the junior cath bag and tubing at this time. Will con't to closely monitor.
[2019-02-05] MEDS: TORADOL IV SCH ×2 (13:41→18:00)
[2019-02-05] MEDS: TYLENOL PO SCH ×2 (16:09→22:00)
[2019-02-05] MEDS: DILAUDID IV PRN (16:11)
[2019-02-05] MEDS: ANCEF/NS 1 GM/50 ML 1 GM/50 ML BAG IV SCH ×2 (16:13→23:53)
[2019-02-05] MEDS: TORADOL IV PRN ×2 (17:53→23:48)
[2019-02-05] MEDS ORDERED: NORCO 5/325 PO PRN (21:00)
[2019-02-05 21:17] LABS: Hematocrit 34.5 % (30.3-42.9); Hemoglobin 12.3 gm/dl (10.1-14.3)
[2019-02-06] MEDS: DILAUDID IV PRN ×4 (00:29→22:07)
[2019-02-06] MEDS: TYLENOL PO SCH ×5 (04:00→22:06)
[2019-02-06] MEDS: TORADOL IV SCH ×4 (06:00→20:38)
[2019-02-06] MEDS: TORADOL IV PRN (06:08)
--- NOTE | 2019-02-06 07:37 | Progress Note ---
Assessment and Plan - Patient Problems (1) delivery delivered Onset Date: ~02/06/19 Current Visit: Yes Status: Acute Plan to address problem: pt A&O X 3 No c/o voiced Pt states baby is BF well. VSS FF Lochia small Dressing D&I H&H drop r/t blood loss from surgery No s/sx of anemia. Doing well s/p c/s P: continue pathway Advance diet and activity as tolerated. 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 of genital herpes: yes Partner hx. of genital herpes: no Rash, Viral, or Febrile illness since last LMP? no Varicella/Chicken Pox Status: Previous Disease TB Risk: no Infection History Comments: HSV 2 Genetic History Congenital Heart Defect: Mom: no Dad: no Martha Disease: Mom: no Dad: no Thalassemia Mom: no Dad: no Neural Tube Defect Mom: no Dad: no Down's Syndrome Mom: no Dad: no Sam-Sachs Mom: no Dad: no Sickle Cell Disease/Trait Mom: no Dad: no Hemophilia Mom: no Dad: no Muscular Dystrophy Mom: no Dad: no Cystic Fibrosis Mom: no Dad: no [place] Chorea Mom: no Dad: no Mental Retardation Mom: no Dad: no Fragile X Mom: no Dad: no Other Genetic/Chromosomal Disorder Mom: no Dad: no Child w/other defect Mom: no Dad: no Enviromental Exposures Xray Exposure: no Medication, drug, or alcohol use since LMP: no Chemical/Other Exposure: no Exposure to Cat Liter: no Hx of Parvovirus (Fifth Disease): no Occupational Exposure to Children: none Active Medications (reviewed today): VALTREX 500 MG () 1 PO Daily. Current Allergies (reviewed today): No known allergies Patient reports: voiding normally, pain well controlled, ambulating normally Kendall: doing well Objective - Vital Signs Latest vital signs: Vital Signs Temp Pulse Resp BP Pulse Ox 02/06/19 04:40 98.4 F 72 18 112/67 02/06/19 00:36 98.2 F 84 18 107/73 02/06/19 00:29 18 02/05/19 20:51 98.2 F 78 20 111/72 02/05/19 16:03 98.0 F 63 20 97/54 97 02/05/19 10:39 97.2 F L 02/05/19 10:30 63 14 95/56 97 02/05/19 10:15 61 13 95/60 98 02/05/19 10:00 65 12 95/61 98 02/05/19 09:45 61 13 97/60 97 02/05/19 09:40 63 13 94/57 97 02/05/19 09:35 97.6 F 69 13 104/65 97 02/05/19 08:37 98 H 100 02/05/19 08:32 71 99 02/05/19 08:27 80 99 02/05/19 08:26 77 118/75 02/05/19 08:22 77 99 02/05/19 08:17 74 99 02/05/19 08:12 69 99 02/05/19 08:10 65 94/59 02/05/19 08:07 61 99 02/05/19 08:02 64 99 02/05/19 07:57 64 99 02/05/19 07:55 63 95/58 02/05/19 07:52 67 99 02/05/19 07:47 63 99 02/05/19 07:42 71 100 02/05/19 07:40 67 105/63 02/05/19 07:37 72 100 02/05/19 07:32 84 100 Intake and Output 02/05/19 02/06/19 02/06/19 22:59 06:59 14:59 Intake Total 650 360 Output Total 1400 2400 Balance - -2039 Intake: IV 50 ANCEF/NS 1 GM/50 ML 1 gm 50 In 50 ml @ 100 mls/hr IV Q8H [facility] Rx#:[id number] Oral 600 Intake, Free Water 360 Output: Urine 1400 2400 Indwelling Catheter 1400 1900 Void 500 Other: Total, Intake Amount 600 Total, Output Amount 1400 500 # Voids Void 1 - Exam Breasts: Present: normal Cardiovascular: Present: Regular rate Lungs: Present: Normal air movement Abdomen: Present: normal appearance, soft, normal bowel sounds Uterus: Present: normal, fundal height at umbilicus Extremities: Present: normal Deep Tendon Reflex Grade: Normal +2 Incision: Present: normal, dry, intact, dressed (to be removed this AM)
[2019-02-06] MEDS: FEOSOL PO SCH ×2 (10:43→20:12)
[2019-02-06] MEDS: IBUPROFEN PO PRN ×2 (12:24→20:37)
[2019-02-07] MEDS: TORADOL IV SCH ×2 (00:20→05:19)
[2019-02-07] MEDS: TYLENOL PO SCH (05:19)
[2019-02-07] MEDS: FEOSOL PO SCH (09:20)
[2019-02-07 10:42] VITALS: BP 106/66
--- NOTE | 2019-02-07 12:23 | Discharge Summary ---
Providers - Providers Date of Admission: 02/04/19 10:21 Date of discharge: 02/07/19 Attending physician: LACIE LUO Primary care physician: LACIE LUO Hospitalization Reason for admission: induction of labor Delivery: Procedure: section Procedure details: see op note Incision: normal, dry, intact Other procedures: none complications: none Discharge diagnosis: IUP at term delivered baby: male Hospital course: Pt doing well this am. exam shows incision is c/d/i no s/sx of infection; lungs CTA b/l; Cardiac exam is also normal. Pt has no swelling or edema in lower ext. She desires d/c home today. Will d/c home today. Condition at discharge: Good Disposition: DC-01 TO HOME OR SELFCARE - Discharge Diagnoses (1) 39 weeks gestation of Status: Acute (2) delivery delivered Status: Acute (3) Gestational diabetes Status: Acute (4) Herpes Status: Acute (5) IUGR (intrauterine growth restriction) Status: Acute Plan - Discharge Medications Prescriptions: Lidocain2.5%/Prilocai2.5% [Emla] 1 gm TP ONCE #1 tube Ibuprofen [Motrin 800 MG tab] 800 mg PO Q8HR PRN #30 tablet PRN Reason: Pain, Moderate (4-6) oxyCODONE /ACETAMINOPHEN [Percocet 5/325] 1 tab PO Q4HR #30 tab - Provider Discharge Summary Activity: routine, no sex for 6 weeks, no heavy lifting 4 weeks, no strenuous exercise Diet: routine Instructions: routine Additional instructions: [] Smoking cessation referral if applicable(refer to patient education folder for contact #) [] Refer to [facility] Booklet Call your doctor immediately for: * Fever > 100.5 * Heavy vaginal bleeding ( >1 pad per hour) * Severe persistent headache * Shortness of breath * Reddened, hot, painful area to leg or breast * Drainage or odor from incision. * Keep incision clean and dry at all times and follow doctor's instructions regarding bathing/showering CALL THE OFFICE TO SCHEDULE CIRCUMCISION WITH IN 1-2 WKS OF DELIVERY. - Follow up plan Follow up: LACIE LUO MD [Primary Care Provider] - 7 Days
== END 2019-02-07 14:30 | disposition home or self-care (01) | DRG 765 ==
LOC: TRG 08:32 → LD 10:21 → OB 02-05 13:38
PROVIDERS: ADMIT Obstetrics & Gynecology; ATTEND Obstetrics & Gynecology
PROC: 10D00Z1 Extraction of Products of Conception, Low, Open Approach (ICD-10-PCS; principal; 2019-02-05)
DX: O76 Abnormality in fetal heart rate and rhythm complicating labor and delivery (principal); O98.52 Other viral diseases complicating childbirth; O24.429 Gestational diabetes mellitus in childbirth, unspecified control; B00.9 Herpesviral infection, unspecified; O36.5930 Maternal care for other known or suspected poor fetal growth, third trimester, not applicable or unspecified; O69.81X0 Labor and delivery complicated by cord around neck, without compression, not applicable or unspecified; Z3A.39 39 weeks gestation of pregnancy; Z37.0 Single live birth
CPT/HCPCS: 36415; 59025; 59200; 85014; 85018; 85027; 86592; 86850; 86900; 86901; G0378; A6250; J0690; J1170; J1885; J2590; J2765; J3490; J7120; J7121

== ENCOUNTER 2019-03-20 05:46 | Day surgery (SDC) | payer MEDICAID ==
--- NOTE | 2019-03-16 14:00 | History and Physical Report ---
History of Present Illness Date of examination: 03/16/19 History of present illness: Patient has been reassessed/reevaluated. H&P has been reviewed. No interval changes. 28 yobf Patient desires sterilization. Patient declined temporary contraceptives. Discuss the permanency of sterilization. High risk of regret and 0.5 to 1% risk of failure. Questions answered Patient understands and desires to proceed. Vital Signs: Patient Profile: 29 Years Old Female Height: 60.5 inches (153.67 cm) Weight: 114 pounds (51.82 kg) BMI: 21.90 BSA: 1.48 Current Method of Contraception: nothing Past History : 2 Term Births: 2 Premature Births: 0 Living Children: 2 Para: 1 Mult. Births: 0 Prev : 1 Aborta: 0 Elect. Ab: 0 Spont. 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 of genital herpes: yes Partner hx. 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 Denies vaginal discharge, incontinence, dysuria, hematuria, urinary frequency, amenorrhea, menorrhagia, abnormal vaginal bleeding, pelvic pain, genital sores, decreased libido, painful periods, painful sex, urinary urgency, hot flashes, vaginal dryness, vaginal itching and vaginal odor. CV Denies chest pains, palpitations, syncope, dyspnea on exertion, orthopnea, PND and peripheral edema. Resp Denies cough, dyspnea at rest, excessive sputum, hemoptysis, wheezing and pleurisy. GI Denies nausea, vomiting, diarrhea, constipation, change in bowel habits, abdominal pain, melena, hematochezia, jaundice, gas/bloating, indigestion/heart burn, dysphagia and odynophagia. Breast Denies left breast lump, right breast lump, nipple discharge, bloody discharge from nipple, breast pain, abnormal mammogram and breast enlargement. Psych Denies depression, anxiety, irritability and mood swings. Past History Past Medical History: other (SEE HPI) Past Surgical History: , Other (SEE HPI) Social history: , full code, other (SEE HPI) Family history: other (SEE HPI) Medications and Allergies Allergies Allergy/AdvReac Type Severity Reaction Status Date / Time No Known Allergies Allergy Verified 03/12/19 15:58 Home Medications Medication Instructions Recorded Confirmed Last Taken Type No Known Home Medications [No 03/12/19 03/12/19 Unknown History Reported Home Medications] Review of Systems All systems: negative (SEE HPI) Constitutional: other (SEE HPI) Exam - Physical Exam Narrative exam: HEENT: normocephalic, no lesions or deformities Skin no abnormal lesions or rashes Chest: respiratory effort normal, clear to auscultation CV: regular, normal S1-S2, no murmur, no rub, no gallop Abdomen: normal bowel sounds, soft, nontender, no HSM Well healed pfannenstiel scar Musculoskeletal: grossly normal ROM in joints, no joint tenderness or muscle weakness Neuro: no gross anomalities Extremities: no discoloration or edema SE[employer] T[employer] INST[employer]ER Exams Vulva/Vagina: normal appearance, no lesions. Cervix: normal appearance, no lesions. Uterus: normal size and position, midline, mobile Adnexae: no masses or tenderness Rectovaginal: exam defered Results - Labs CBC & Chem 7: 03/20/19 06:40 Assessment and Plan - Patient Problems (1) Encounter for female sterilization procedure Current Visit: No Status: Acute Plan to address problem: Patient desires sterilization.Discuss the permanency of sterilization. High risk of regret and 0.5 to 1% risk of failure. Discussed the different risk of abdominal versus vaginal approaches. Information given Discussed options of tuba l blockage and salpingectomy and it's possible benefit of preventing ovarian cancer and increased risks of bleeding during the procedure. Discuss the risks of the surgery including infection, bleeding possibly heavy enough to require a blood transfusion, possilble damage to bowel, bladder or ureter. Patient understands and desires to proceed. Patient desires salpingectomy
[~2019-03-20 05:46] MED LIST: LACTATED RINGERS 1,000 ML IV SCH
[2019-03-20] MEDS ORDERED: NEURONTIN PO NR (06:00)
[2019-03-20] MEDS ORDERED: TRANSDERM-SCOP TD NR (06:00)
[2019-03-20] MEDS ORDERED: VERSED IV NR (06:00)
[2019-03-20] MEDS ORDERED: NACL BACTERIOSTATIC INFILTRATI ONE (06:35)
[2019-03-20] MEDS ORDERED: MARCAINE 0.5% INFILTRATI ONE ×2 (06:40→07:26)
[2019-03-20 07:00] LABS: Hematocrit 41.9 % (30.3-42.9); Hemoglobin 14.6 gm/dl (10.1-14.3)
[2019-03-20] MEDS ORDERED: NACL 0.9% IR ONE (07:27)
[2019-03-20] MEDS ORDERED: ZOFRAN IV PRN (07:31)
[2019-03-20] MEDS ORDERED: DILAUDID IV PRN (07:31)
--- NOTE | 2019-03-20 07:31 | Anesthesia Day of Surgery ---
Anesthesia Day of Surgery - Day of Surgery Patient Examined: Yes Patient H&P Reviewed: Yes Patient is NPO: Yes
--- NOTE | 2019-03-20 07:31 | Anesthesia Consultation ---
Anesthesia Consult and Med Hx Date of service: 03/20/19 - Airway Anesthetic Teeth Evaluation: Good ROM Head & Neck: Adequate Mental/Hyoid Distance: Adequate Mallampati Class: Class I Intubation Access Assessment: Good - Pulmonary Exam CTA: Yes - Cardiac Exam Cardiac Exam: RRR - Pre-Operative Health Status ASA Pre-Surgery Classification: ASA1 Proposed Anesthetic Plan: General - Pulmonary Hx Asthma: No - Cardiovascular System Hx Hypertension: No - Central Nervous System Hx Seizures: No Hx Psychiatric Problems: No - Endocrine Hx Renal Disease: No Hx Hypothyroidism: No Hx Hyperthyroidism: No - Hematic Hx Anemia: No Hx Sickle Cell Disease: No - Other Systems Hx Alcohol Use: Yes (Occas) Hx Cancer: No
[2019-03-20] MEDS ORDERED: DIPRIVAN 10 MG/ML IV ONE (07:40)
[2019-03-20] MEDS ORDERED: VERSED ONE (07:42)
[2019-03-20] MEDS ORDERED: SUBLIMAZE ONE (07:44)
[2019-03-20] MEDS ORDERED: ZEMURON IV ONE (08:00)
[2019-03-20] MEDS ORDERED: ZOFRAN ONE (08:00)
[2019-03-20] MEDS ORDERED: ROBINUL ONE (08:00)
[2019-03-20] MEDS ORDERED: BLOXIVERZ ONE (08:00)
[2019-03-20] MEDS ORDERED: DECADRON ONE (08:00)
--- NOTE | 2019-03-20 09:01 | Short Stay Summary ---
Short Stay Documentation Date of service: 03/20/19 Narrative H&P: See dictated history and physical - History Principal diagnosis: desires permanent sterilization H&P: dictated Past Medical History: other (SEE HPI) Past Surgical History: , Other (SEE HPI) Social history: , full code, other (SEE HPI) - Allergies and Medications Current Medications: Allergies No Known Allergies Allergy (Verified 03/12/19 15:58) Home Medications Medication Instructions Recorded Confirmed Last Taken Type oxyCODONE /ACETAMINOPHEN [Percocet 1 - 2 tab PO Q4H PRN #20 tablet 03/20/19 Unknown Rx 5/325 mg] Active Medications Celecoxib (Celebrex) 200 mg PO PREOP NR Stop: 03/20/19 18:00 Last Admin: 03/20/19 06:35 Dose: 200 mg Documented by: Gabapentin (Neurontin) 300 mg PO PREOP NR Stop: 03/20/19 18:00 Last Admin: 03/20/19 06:35 Dose: 300 mg Documented by: Hydromorphone HCl (Dilaudid) 0.5 mg IV Q10MIN PRN PRN Reason: Pain , Severe (7-10) Stop: 03/20/19 16:00 Lactated Ringer's (Lactated Ringers) 1,000 mls @ 100 mls/hr IV DIRECT ANIYA Last Admin: 03/20/19 06:50 Dose: 100 mls/hr Documented by: Midazolam HCl (Versed) 2 mg IV PREOP NR Stop: 03/20/19 18:00 Last Admin: 03/20/19 07:31 Dose: 2 mg Documented by: Ondansetron HCl (Zofran) 4 mg IV ONCE PRN PRN Reason: Nausea And Vomiting Stop: 03/20/19 16:00 Scopolamine (Transderm-Scop) 1 each TD PREOP NR Stop: 03/20/19 18:00 Last Admin: 03/20/19 06:35 Dose: 1 each Documented by: - Brief post op/procedure progress note Date of procedure: 03/20/19 (see dictated operative note) - Hospital course Hospital course: Patient was admitted underwent the above him procedure without any complications. Patient will be discharged with follow-up in office in 1-2 weeks for postop check. - Disposition Condition at discharge: Good Disposition: DC-01 TO HOME OR SELFCARE - Discharge Diagnoses (1) Encounter for female sterilization procedure Status: Acute Short Stay Discharge Plan Activity: advance as tolerated Diet: regular Wound: open to air Additional Instructions: Patient office for fever chills nausea vomiting or pain uncontrolled by pain relief. . Follow up with: PRIMARY CARE,MD [Primary Care Provider] - 7 Days Prescriptions: oxyCODONE /ACETAMINOPHEN [Percocet 5/325 mg] 1 - 2 tab PO Q4H PRN #20 tablet PRN Reason: Pain, Moderate
--- NOTE | 2019-03-20 09:06 | Operative Report ---
Operative Report Operative Report: Pre-operative diagnosis: Patient desires permanent sterilization Post-operative diagnosis: Same Procedure name(s): Laparoscopic bilateral salpingectomy Surgeon: Emil Uribe MD Stone Sawyer: [] Anesthesia: General endotracheal EBL: Minimal Complications: None Findings: Patient with uterus approximately 8 weeks in size with normal fallopian tubes bilaterally Specimen(s): None Patient was brought in the operating room. General anesthesia was induced without difficulty. She was placed in dorsal lithotomy position. Prepped and draped in usual sterile manner. Her urinary bladder with was emptied with a red rubber catheter. Speculum placed in her vagina and Sargis uterine manipulator was placed for uterine manipulation. Attention was then switched to the patient's abdomen. An infra-umbilical incision was made with a scalpel. This incision was spread with a hemostat. A 5 mm trocar was placed in this incision while lifting high the abdominal wall. Intra-abdominal presence was verified directly with the laparoscope. The patient was then insufflated to approximately 3 L of CO2 gas. The patient's findings as noted above. An accessory puncture was made suprapubically. The 5 mm trocar was placed through this incision under direct visualization with no evidence of internal organ damage. A second 5 mm trocar was placed on direct visualization the right lower quadrant without any evidence of internal organ damage. Each of the fallopian tube were identified by its fimbriated end. A portion approximately 1-2 cm from each cornua was grasped cauterized and cut with the bipolar cutting instrument. The mesosalpinx cauterized and cut and going distally into the fimbriae were approached and also mesosalpinx was covered cauterized and cut releasing the fallopian tube. Each fallopian tube were removed through the 5 mm trocar. Each tubal stump were inspected and found be hemostatic. At this time all instruments were removed. The patient was deinsufflated. The skin incisions were closed subcuticular with 4-0 Vicryl. Marcaine was given subcuticularly for postoperative pain relief. The patient tolerated procedure well. She was awakened in the operating room and accompanied to the recovery room in good condition.
[2019-03-20] MEDS ORDERED: PERCOCET 5/325 PO PRN (10:00)
[2019-03-20 11:13] VITALS: BP 123/83
--- NOTE | 2019-03-20 13:01 | Post Anesthesia Evaluation ---
- Post Anesthesia Evaluation Patient Participated: Yes Airway Patent: Yes Stable Respiratory Function: Yes Nausea/Vomiting: No Temp > 96.8F: Yes Pain Manageable: Yes Adequeate Hydration: Yes Anesthesia Complications: No
== END 2019-03-20 05:47 | disposition home or self-care (01) ==
LOC: OR 05:46
PROVIDERS: ATTEND Obstetrics & Gynecology
DX: Z30.2 Encounter for sterilization (principal); Z79.899 Other long term (current) drug therapy; Z98.891 History of uterine scar from previous surgery; Z72.89 Other problems related to lifestyle; Z98.890 Other specified postprocedural states; Z82.49 Family history of ischemic heart disease and other diseases of the circulatory system
CPT/HCPCS: 36415; 58670; 81025; 85014; 85018; 88302; J1100; J2250; J2405; J2704; J2710; J3010; J7120